=== PATIENT | male | born 1960 | race Caucasian/White ===

== ENCOUNTER → 2020-08-30 10:47 | Outpatient (CLI) | payer BC, SELFPAY | PROVIDERS: Visit Provider Internal Medicine Gastroenterology | DX: Z01.812 Encounter for preprocedural laboratory examination (principal); Z20.822 Contact with and (suspected) exposure to COVID-19; Z12.11 Encounter for screening for malignant neoplasm of colon | CPT/HCPCS: U0003 ==

== ENCOUNTER 2020-09-01 09:03 | Day surgery (SDC) | payer BC, SELFPAY ==
[2020-08-26 10:02] VITALS: BMI 44.1
[2020-09-01 09:30] VITALS: BP 115/79; PULSE 104; RESP 18; TEMP 36; O2SAT 97
--- NOTE | 2020-09-01 09:39 | P.PN_ITS ---
[facility] Anesthesia Checklist - Patient Identification Patient Identification: Arm Band - Structural Data Admitted From: Home Planned Operative Procedure/s: Colonoscopy Consent for Planned Operative Procedure(s) Verified: Yes - NPO Status Verified Time NPO: 00:00 - Airway Assessment C-Spine Mobility Assessed: Yes TMJ Mobility Assessed: Yes - Neurological Assessment Level of Consciousness: Awake, Alert Hx Seizures: No Numbness or tingling in extremities: No - Anesthesia Plan Anesthesia Risk discussed: Yes Anesthesia Plan: Verified ASA Class: III Anesthesia Type: MAC [facility] History I have reviewed the patient's past medical history: Yes Medical History: Reports:: Diabetes Mellitus Type 2 Denies:: Cancer, Diabetes Mellitus Type 1, Internal Pacemaker, MRSA, Seizures *Have you ever received a pneumonia vaccine?: Yes *Have you received a flu vaccine this season?: Yes Anesthesia experience/problems:: Pulmonary thrombosis, post- op intubation Laterality Cases: Left: ACL Repair, Arthroscopy Knee, Right: Total Hip Replacement, Bilateral: Tonsillectomy Other Surgeries: No: Pacemaker Amputation: No Fractures: Yes - *Social History Last grade of school completed: Some college Smoking Status: Never smoker Alcohol Intake: never Substance Use Type: denies use *Occupational Status:: employed Housing: house Household Members: spouse *Travel in the last 8 weeks: None Family Hx:: Unable to obtain
[2020-09-01 10:10] VITALS: O2SAT 97
--- NOTE | 2020-09-01 10:26 | P.PCN_ITS ---
[facility] Procedure Note Procedure Note:: Upper Endoscopy Procedure Report: Esophagogastroduodenoscopy with cold biopsies Endoscopost: Santosh Ronquillo II, MD Referring Physician: Garo Soliman MD ([facility]) Date of Procedure: September 01, 2020 Equipment: Olympus GIF 190 standard upper endoscope Sedation: MAC sedation Indications: Mr. Walter is a 60-year-old gentleman with dyspepsia. He reports epigastric abdominal discomfort, bloating and some belching. He reports nausea and some early satiety. He does have a history of GERD for which he takes pantoprazole daily. He reports no significant heartburn, reflux or dysphagia. He does have chronic diarrhea. The patient did have former EGD in August 2019 and was found to have a hyperplastic polyp and some reactive gastropathy. He later underwent ultrasound of the gallbladder and HIDA scan which were normal. This did show some fatty liver (hepatic steatosis). He reports no vomiting, melena or hematochezia. He reports no weight loss. Procedure: Prior to the procedure, a history and physical exam was performed, and patient's medications and allergies were reviewed. The risks, benefits and alternatives of the sedation and procedure were discussed with the patient. All questions were answered and informed consent was obtained. The patient was brought to the procedure room. Patient identification and proposed procedure were verified by the physician and the nurse. The patient was placed in a left lateral decubitus position and the scope was passed under direct vision. Throughout the procedure, the patient's blood pressure, pulse, and oxygen saturations were monitored continuously. The upper GI endoscopy was accomplished without difficulty. The patient tolerated the procedure well. Findings: The scope was passed directly into the upper esophagus and advanced to the third portion of the duodenum. The post bulbar duodenum and duodenal bulb were normal with normal mucosa and conniventes. Cold biopsies were taken from the post bulbar duodenum and duodenal bulb to rule out celiac disease. The scope was withdrawn through a normal duodenal bulb and pylorus into the stomach. There was bile reflux with moderate linear reactive gastropathy of the antrum and body of the stomach. The remainder of the fundus of the stomach was grossly normal. Upon retroflexion there was no hiatal hernia. 2 biopsies were taken in the antrum and along the lesser curvature for histology to rule out gastritis and/or H pylori. The scope was then withdrawn into the esophagus. There was no evidence of reflux esophagitis or Valencia's. There were no esophageal varices. There were tertiary contractions and evidence of mild esophageal dysmotility. The remainder of the esophageal mucosa was normal. Impression: 1. Nonerosive GERD with mild esophageal dysmotility 2. Bile reflux with moderate linear reactive gastropathy (antrum/body) Plan: I will follow-up the biopsies. The patient does have functional dyspepsia. I do feel that this is driven by gas pressure gradients/colonic fermentation. We will discuss additional dietary measures and treatment options. I will proceed with diagnostic colonoscopy.
[2020-09-01 10:42] LABS: POC Glucose,Bedside 155 (70-110)
--- NOTE | 2020-09-01 10:47 | P.PCN_ITS ---
[facility] Procedure Note Procedure Note:: Colonoscopy Procedure Report: Colonoscopy with cold snare polypectomy and cold biopsies Endoscopist: Santosh Ronquillo II, MD Referring physician: Garo Soliman MD ([facility]) Date of Procedure: September 01, 2020 Equipment: Olympus 190 variable stiffness pediatric colonoscope Sedation: MAC sedation Indication: Mr. Tobar is a 60-year-old gentleman who is here for diagnostic colonoscopy secondary to ongoing abdominal pain/epigastric pain, bloating and bowel irregularity. The patient does report chronic diarrhea but recently reverted to constipation. He has some nausea. He reports no significant gassiness. He reports no rectal bleeding, abdominal pain, weight loss or family history of colon cancer. He did have a colonoscopy in August 2019 (Dr. Kai Irving in [place]) and had 2 sessile polyps (tubular adenoma x1/mucosal prolapse polyp x1). Cold biopsies of the colon at that time did not show any evidence of microscopic colitis. The patient reports having to miss work because of the abdominal pain and diarrhea. Procedure: Prior to the procedure, a history and physical exam was performed, and patient's medications and allergies were reviewed. The risks, benefits and alternatives of the sedation and procedure were discussed with the patient. All questions were answered and informed consent was obtained. The patient was brought to the procedure room. Patient identification and proposed procedure were verified by the physician and the nurse. The patient was placed in a left lateral decubitus position and the scope was passed under direct vision. Throughout the procedure, the patient's blood pressure, pulse, and oxygen saturations were monitored continuously. The colonoscopy was accomplished without difficulty. The patient tolerated the procedure well. Findings: On digital rectal examination there was normal rectal tone. There were no external hemorrhoids. The prostate was moderately firm and mildly asymmetric without nodules. The colonoscope was introduced through the anal canal to the rectum and advanced to the cecum. The ileocecal valve and appendiceal orifice were identified. The scope was advanced a short distance into the ileum which appeared grossly normal. The scope was then withdrawn into the colon. There were 2 polyps (cecum x1 (2 mm) and descending x1 (5 mm) which were both removed via cold snare polypectomy. Random biopsies were taken from the right colon to rule out microscopic colitis. There were scattered diverticuli throughout the colon but more predominantly in the descending and sigmoid colon (LEFT colon). The rectum itself was normal. Upon retroflexion within the rectum there were grade 1-2 internal hemorrhoids. The preparation was excellent throughout with Helix Preparation Score of 9. The cecal time was 12 minutes. Impression: 1. Colonic polyps x2 2. Pandiverticulosis 3. Grade 1-2 internal hemorrhoids Plan: I do suspect functional diarrhea. I will recommend bulk fiber (FiberCon 2 tablets p.o. every morning) and IBgard. I will follow-up the biopsies. If the biopsies are negative for microscopic colitis, I would consider adding Viberzi. We will discuss dietary measures and treatment options. I will follow up the polyp histology. If the polyps are adenomatous, I would consider repeat surveillance colonoscopy again in 5 to 7 years.
[2020-09-01 10:50] VITALS: BP 93/68; PULSE 99; RESP 12; TEMP 36.3; O2SAT 94
[2020-09-01 11:00] VITALS: BP 123/73; PULSE 89; RESP 16; O2SAT 94
[2020-09-01 11:10] VITALS: BP 120/79; PULSE 94; RESP 16; O2SAT 93
[2020-09-01 11:20] VITALS: BP 117/73; PULSE 94; RESP 16; TEMP 36.3; O2SAT 94
== END 2020-09-01 11:28 | disposition home or self-care (01) ==
PROVIDERS: PCP Nurse Practitioner Family; Visit Provider Internal Medicine Gastroenterology
PROC: 0DJ08ZZ Inspection of Upper Intestinal Tract, Via Natural or Artificial Opening Endoscopic (ICD-10-PCS; CPT 43235; principal; 2020-09-01 10:00)
DX: Z86.010 Personal history of colon polyps (principal); K63.5 Polyp of colon; K57.30 Diverticulosis of large intestine without perforation or abscess without bleeding; K64.0 First degree hemorrhoids; K21.9 Gastro-esophageal reflux disease without esophagitis; K22.4 Dyskinesia of esophagus; K31.9 Disease of stomach and duodenum, unspecified; E11.9 Type 2 diabetes mellitus without complications; Z79.899 Other long term (current) drug therapy
CPT/HCPCS: 45380; 45385; 43239; 82962